=== PATIENT | female | born 1955 | race Caucasian/White ===

== ENCOUNTER → 2018-08-20 | Outpatient (CLI) | payer BC | LOC: COL.RAD 09:42 | DX: R10.11 Right upper quadrant pain (principal) | CPT/HCPCS: A9537 ==

== ENCOUNTER → 2024-01-30 | Outpatient (CLI) | payer BC ==
[~2024-01-30] MED LIST: Iohexol 300 - 10 ML VIAL IV ONE; Triamcinolone 40 MG/ML 1 ML VIAL IJ ONE
== END ==
LOC: COL.RAD 12:25
DX: M79.675 Pain in left toe(s) (principal)
CPT/HCPCS: J0665; J3301; Q9967

== ENCOUNTER → 2024-03-13 | Outpatient (CLI) | payer BC | LOC: COL.RAD 07:23 | DX: M25.551 Pain in right hip (principal) | CPT/HCPCS: J0665; J3301; Q9967 ==